=== PATIENT | male | born 1975 | race Hispanic/Latino ===

== ENCOUNTER 2022-11-06 16:55 | Emergency (ER) | payer OTHER ==
--- OUTSIDE RECORDS SUMMARY | 2022-11-06 16:58 | XMS REPORT | Continuity of Care Document ---
:1975 Author Organization [facility] t Address [address] [facility] [address] [place] [address] Care Team Providers Name Role Phone Martino, Ifeoma Cristina Primary Care Physician [phone] Soham Mayfield MD Attending Clinician Payers Payer Name Policy Type Policy Number Effective Date Expiration Date Aleah MEDINA [id number] 2022 HEALTH PLAN 00:00:00 Problems Condition Condition Condition Status Onset Resolution Last Treating Co mments Source Name Details Category Date Date Treatment Clinician Date Acute pain Acute pain Disease Active [facility] T of left of left 07-11 [facility] knee knee 00:00: 00 Allergies, Adverse Reactions, Alerts This patient has no known allergies or adverse reactions. Social History Social Habit Start Date Stop Date Quantity Comments Source Sex Assigned At [birth year] [place] [facility] 00:00:00 00:00:00 Smoking Status Start Date Stop Date Source Tobacco smoking consumption unknown [facility] Medications This patient has no known medications. Vital Signs Vital Name Observation Time Observation Value Comments Source Body height 2022-07-11 18:04:00 180.3 [facility] Body weight 2022-07-11 18:04:00 111.131 [facility] BMI 2022-07-11 18:04:00 34.17 kg/m2 [facility] Procedures This patient has no known procedures. Encounters Start End Encounter Admission Attending Care Care Encounter Source Date/Time Date/Time Type Type Clinicians Facility Department ID 2022-08-27 Outpatient [facility] [id number] [place] 22:44:33 [id number] [facility] 2022-07-11 Outpatient [facility] [id number] [place] 12:56:25 [id number] [facility] 2022-07-10 Outpatient [facility] [id number] [place] 10:34:21 [id number] [facility] 2022-07-09 Outpatient [facility] [id number] [place] 16:05:39 [id number] [facility] 2022-07-11 2022-07-11 Outpatient [facility] [id number] [place] 00:00:00 14:15:53 Health 2022-07-11 2022-07-11 Office [place] [facility] [id number] [place] 13:00:00 13:41:20 Visit Soham SANDERS [id number] [facility] [id number] Results This patient has no known results.
[2022-11-06 17:44] LABS: Protime INR 1.1
[2022-11-06 17:45] LABS: Lymphocytes % 22.9 % (15.3-44.8); MCV 82.6 fL (80-100); MPV 7.6 fL (7.6-11.3)
[2022-11-06] MEDS ORDERED: ONDANSETRON 4 MG/2 ML VIAL ONE (17:52)
[2022-11-06] MEDS ORDERED: MORPHINE 4 MG/ML SYR ONE (17:52)
[2022-11-06 17:54] LABS: Potassium 3.7 mEq/L (3.5-5.1)
--- NOTE | 2022-11-06 18:01 | RAD REPORT ---
EXAM DESCRIPTION: RAD - Forearm Right - 11/06/2022 5:51 pm CLINICAL HISTORY: Right arm pain FINDINGS: No fracture is seen involving the radius or ulna. 3 millimeter bony density lies along the dorsal aspect of the wrist which may represent an avulsion f racture of indeterminate age.
--- NOTE | 2022-11-06 18:02 | RAD REPORT ---
EXAM DESCRIPTION: RAD - Knee Left 3 View - 11/06/2022 5:51 pm CLINICAL HISTORY: Left knee pain FINDINGS: No fracture or dislocation is seen.
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
[2022-11-06 19:19] VITALS: TEMP 98
[2022-11-06 19:30] VITALS: BP 124/78; O2SAT 98
== END 2022-11-06 18:54 | disposition home or self-care (01) ==
LOC: ER 16:55
DX: S16.1XXA Strain of muscle, fascia and tendon at neck level, initial encounter (principal); S50.11XA Contusion of right forearm, initial encounter; S80.02XA Contusion of left knee, initial encounter; V49.49XA Driver injured in collision with other motor vehicles in traffic accident, initial encounter
CPT/HCPCS: 85025; 80048; 36415; 85610; 82565; 85730; 70450; 72125; 70498; 73090; 73562; Q9967; J2405